=== PATIENT | female | born 2000 | race Caucasian/White ===

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

== ENCOUNTER 2021-07-29 12:31 | Emergency (ER) | payer OTHER, SELFPAY ==
[2021-07-29 12:38] VITALS: BP 117/75; PULSE 94; RESP 16; TEMP 36.5; O2SAT 99
--- NOTE | 2021-07-29 12:44 | ED.URI ---
HPI - URI/Sore Throat General Chief Complaint: Upper Respiratory Infection Stated Complaint: sore throat/ strep exposure Time Seen by Provider: 07/29/21 12:34 Source: patient and RN notes reviewed History of Present Illness HPI Narrative: Patient is a 21-year-old female who presents the urgent care complaints of sore throat, body aches and fatigue. Patient states that her symptoms started on Wednesday and her roommate was diagnosed with strep yesterday. Patient has been taking DayQuil for her symptoms. Denies of any fever, nausea, vomiting. No other acute complaints. Patient has had a Covid vaccination. No acute distress noted. Patient aware of the plan of care. Some parts of this dictation were generated by voice recognition software and may contain typographical and/or grammatical inaccuracies. Related Data Home Medications Medication Instructions Recorded Confirmed drospirenone-ethinyl estradiol 1 tablet PO DAILY 08/21/19 08/14/20 [Melanieanvi (28)] Allergies Allergy/AdvReac Type Severity Reaction Status Date / Time No Known Allergies Allergy Other Uncoded 08/14/20 15:19 Review of Systems Review of Systems: CONSTITUTIONAL: Denies fever, chills, or sweats. Reports of fatigue EYES: Denies visual changes, redness, or discharge. ENT: Reports of sore throat and postnasal drainage CARDIOVASCULAR: Denies chest pain, palpitations, or edema. RESPIRATORY: Denies cough or dyspnea. GASTROINTESTINAL: Denies abdominal pain, nausea, vomiting, or diarrhea. GENITOURINARY: Denies dysuria or hematuria. SKIN: Denies rash or itching. MUSCULOSKELETAL: Denies back pain, joint pain. Reports of body aches NEUROLOGIC: Denies headache, numbness, or weakness. All other systems reviewed are negative, except as documented in HPI. [facility] Past Medical History Medical History (Updated 07/29/21 @ 12:54 by JIM Cahrles) No pertinent family history No significant past medical history Upper respiratory infection Surgical History Surgical History Hx of tonsillectomy Social History Social History (Updated 08/15/20 @ 14:49 by Jesusita Andrade NP) Smoking status: Never smoker Alcohol intake: unknown Substance use: never Gender identity (if verbalized by the patient): Female Comments At the time of my signature, I reviewed and agree with the nursing past medical, surgical, social, and family history. There is no relevant family history pertinent to the patient complaint. Exam Narrative: GENERAL: This is a well-nourished, well-developed patient, in no apparent distress. HEAD: normocephalic, atraumatic. EYES: PERRL. Sclera clear/white. Vision is grossly intact. EARS: External ears normal, auditory canals clear and without drainage, TMs normal without perforation. Hearing grossly intact. NOSE: External nose normal with no obvious nasal discharge, nares without redness, no rhinorrhea. THROAT: Mucous membranes moist, posterior pharynx clear. Mild postnasal drainage NECK: Neck supple, non-tender without lymphadenopathy CARDIOVASCULAR: Regular rate and rhythm without murmurs, gallops, or rubs. RESPIRATORY: Clear to auscultation. Breath sounds equal bilaterally. No wheezes, rales, or rhonchi. SKIN: warm, intact with no suspicious lesions or rash, good texture and turgor. NEURO: awake, alert, and oriented to person, place and time. There were no obvious focal neurologic abnormalities. EXTREMITIES: No clubbing, cyanosis, or edema. Course Vital Signs Vital signs: Vital Signs Temperature 97.7 F 07/29/21 12:38 Pulse Rate 94 07/29/21 12:38 Respiratory Rate 16 07/29/21 12:38 Blood Pressure 117/75 07/29/21 12:38 Pulse Oximetry 99 07/29/21 12:38 Temperature 97.7 F 07/29/21 12:38 Pulse Rate 94 07/29/21 12:38 Respiratory Rate 16 07/29/21 12:38 Blood Pressure 117/75 07/29/21 12:38 Pulse Oximetry 99 07/29/21 12:38 Reviewed MDM - URI/So
== END 2021-07-29 12:59 | disposition home or self-care (01) ==
PROVIDERS: Emergency Provider Nurse Practitioner Family
DX: J02.9 Acute pharyngitis, unspecified (principal)
CPT/HCPCS: 87081; 87880; 99213; G0463